=== PATIENT | female | born 1950 | race Caucasian/White ===

== ENCOUNTER 2017-01-27 04:44 | Emergency (ER) | payer OTHER, MEDICARE ==
[~2017-01-27] VITALS: Ht 167.6 cm; Wt 99.0 kg
[~2017-01-27 04:44] MED LIST: 1-ME1LIQ PO; CELE20TA PO; HUMSS SQ; LANTUS2P SC; LOSA50TA PO; METO50TA PO
[2017-01-27 04:47] VITALS: BP 140/84; PULSE 100; RESP 18; TEMP 98.4; O2SAT 95
[2017-01-27] MEDS ORDERED: HYDRO10 PO (05:06)
[2017-01-27] MEDS ORDERED: LEVEMIR SQ (05:06)
[2017-01-27] MEDS ORDERED: CORT20TA PO (05:06)
[2017-01-27] MEDS ORDERED: AMLO5 PO (05:06)
[2017-01-27] MEDS ORDERED: CELE20TA PO (05:06)
[2017-01-27] MEDS ORDERED: CORT5TAB PO ×2 (05:06)
[2017-01-27] MEDS ORDERED: LOSA50TA PO (05:06)
[2017-01-27] MEDS ORDERED: METO50TA PO (05:06)
[2017-01-27] MEDS ORDERED: FURO1TAB62 PO (05:06)
[2017-01-27] MEDS ORDERED: HUMALOG SQ (05:06)
[2017-01-27] MEDS ORDERED: TIRO25CA PO (05:08)
--- NOTE | 2017-01-27 05:28 | PD ---
HPI Chief Complaint: Edema Time Seen by Provider: 05:18 Travel History International Travel<30 days: No Contact w/Intl Traveler<30days: No Traveled to known affect area: No History of Present Illness HPI The patient is a 66 year old female who presents to the [facility] emergency department with a history of sore throat with reported anterior neck pain over her thyroid, and painful swallowing. She reports that she's basically been ingesting a liquid diet since yesterday. She reports that the symptoms began yesterday morning. 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 The patient reports that she had similar symptoms prior to being diagnosed with this a year ago. She reports that she was treated with antibiotics which seemed to help, however now she is on a thyroid supplement. She reports that she has an appointment with the [facility] to see an rn night regarding this, as she also has a history of recently being diagnosed with adrenal insufficiency and a year ago had an adrenal crisis. She reports that over the last year she seems 75 pounds which she relates to being on hydrocortisone. The patient reports that over the last year she has also had chronic diarrhea. She reports that she moves her bowels 5 times per day. She reports that she has a history of diabetes mellitus and her blood sugar is rarely ever under control. She reports that a blood sugar of 190 done yesterday with good, however it is usually much higher than this. She reports that she has been compliant with taking her insulin. Incidentally, on review of systems she reports having chronic dyspnea on exertion over the last year. The patient denies any recent fevers, cough, congestion, chest pain, worsening shortness of breath, abdominal pain, vomiting , urinary symptoms, or neurologic symptoms. [facility] Past Medical History Narrative Medical The patient's past medical history is significant for gastroparesis, DM, hypothyroidism, Addrenal insufficiency, hypertension, sleep apnea, fatty liver. Asthma: No Blood Disorders: No Heart Rhythm Problems: No Cancer: No Cardiovascular Problems: Yes (HTN) High Cholesterol: No Chest Pain: No Congestive Heart Failure: No COPD: No Diabetes: Yes Patient Takes Glucophage: No Endocrine: Yes Gastrointestinal Disorders: Yes (FATTY LIVER, gastroparesis) Genitourinary: No Hepatitis: Yes (HEP A AGE 15) Hiatal Hernia: No Hypertension: Yes Immune Disorder: No Medical other: Yes (FATTY LIVER, adrenal insufficiency) Musculoskeletal: Yes (L KNEE REPLACEMENT) Neurologic: No Psychiatric: No Reproductive: No Respiratory: Yes (SLEEP APNEA) Sleep Apnea: Yes Thyroid Disease: No Past Surgical History Narrative Surgical The patient's past surgical history is significant for cholecystectomy, left knee replacement, x1, nose surgery, and a tonsillectomy. Body Medical Devices: ARTIFICIAL L KNEE Cholecystectomy: Yes Gynecologic Surgery: Yes (1979 ) Joint Replacement: Yes (LEFT KNEE) Other Surgery: Yes (LEFT PLANTAR FASCIA TUMOR REMOVAL, L TOTAL KNEE REPLACEMENT ,C /S, GB REMOVE) Social History Alcohol Use: No Tobacco Use: No Substance Use: No Allergies-Medications (Allergen,Severity, Reaction): Coded Allergies: Lortab (Unverified Allergy, Intermediate, ITCHING, 04/03/16) Sulfa (Unverified Allergy, Intermediate, HIVES, 04/03/16) Vicodin (Unverified Allergy, Intermediate, ITCHING, 04/03/16) Penicillin (Unverified Allergy, Mild, HIVES, 04/03/16) Contrast Media (Unverified Allergy, Unknown, CHILDHOOD, 04/03/16) Reported Meds & Prescriptions Reported Meds & Active Scripts Active Clindamycin (Clindamycin HCl) 300 Mg Cap 300 Mg PO TID 10 Days Reported Tirosint (Levothyroxine Sodium) 25 Mcg Cap 75 Mcg PO DAILY Cortef (Hydrocortisone) 10 Mg Tab 10 Mg PO DAILY PRN Take with food to decresae GI upset Cortef (Hydrocortisone) 5 Mg Tab 5 Mg PO Take with food to decrease GI upset Cortef (Hydrocortisone) 5 Mg Tab 5 Mg PO DAILY Take with food to decrease GI upset Cortef (Hydrocortisone) 10 Mg Tab 10 Mg PO DAILY Take with food to decresae GI upset Cortef (Hydrocortisone) 20 Mg Tab 20 Mg PO DAILY Take with food to decrease GI upset Lasix (Furosemide) 20 Mg Tab 20 Mg PO DAILY Norvasc (Amlodipine Besylate) 5 Mg Tab 5 Mg PO DAILY Metoprolol Tartrate 50 Mg Tab 50 Mg PO BID Losartan (Losartan Potassium) 50 Mg Tab 50 Mg PO DAILY Humalog Inj (Insulin Human Lispro) 1,000 Unit/10 Ml Vial 20-25 Units SQ TIDAC Max dose at bedtime:( )units; sugars < 70,(0)units; sugars 150-199,(5)units; sugars 200-249,(10)units; sugars 250-299,(15)units; sugars 300-349,(20)units; sugars more than 349,(25)units. Levemir Inj (Insulin Detemir) 1,000 unit/ 10 ML Vial 50 Units SQ HS Do not mix with any other Insulin. Celexa (Citalopram Hydrobromide) 20 Mg Tab 20 Mg PO DAILY Review of Systems Except as stated in HPI: all other systems reviewed are Neg General / Constitutional: No: Fever Eyes: No: Visual changes HENT: Positive: Sore Throat, Neck Pain, No: Headaches, Rhinorrhea, Congestion Cardiovascular: Positive: Dyspnea on exertion (chronic over last year.), No: Chest Pain or Discomfort Respiratory: No: Cough, Shortness of Breath Gastrointestinal: Positive: Diarrhea, No: Nausea, Vomiting, Abdominal Pain Genitourinary: No: Urgency, Frequency, Dysuria Musculoskeletal: No: Pain Skin: No Rash Neurologic: Positive: Weakness (fatigue), No: Focal Abnormalities, Headache, Change in Mentation, Sensory Disturbance Psychiatric: No: Depression Endocrine: No: Polydipsia Hematologic/Lymphatic: No: Easy Bruising Physical Exam Narrative General: The patient is a well-developed well-nourished female in no acute distress. Head and Neck exam: Head is normocephalic atraumatic. Eyes: EOMI, pupils are equal round and reactive to light. Nose: Midline septum with pink mucous membranes Mouth: Dentition unremarkable. Moist mucus membranes. Posterior oropharynx is mildly erythematous. No tonsillar hypertrophy. Uvula midline. Airway patent. No swelling is noted underneath the tongue. Neck: No palpable lymphadenopathy, however she reports tenderness on palpation along the anterior tonsillar cervical lymph. No nuchal rigidity. No thyromegaly is palpable, however she has a large neck. She has diffuse soft tissue prominence noted in her neck. Cardiovascular: Regular rate and rhythm without murmurs, gallops, or rubs. Lungs: Clear to auscultation bilaterally. No wheezes, rhonchi, or rales. Abdomen: Soft, without tenderness to palpation in all 4 quadrants of the abdomen. No guarding, rebound, or rigidity. Normal bowel sounds are audible. No tenderness on palpation of McBurney's point. Negative [place] sign. Extremities: No clubbing or cyanosis. The patient has trace pedal edema bilateral lower extremity. 2+ pulses in all 4 extremities. No calf tenderness on palpation. Back: No costovertebral angle tenderness to palpation. Neurologic Exam: Grossly nonfocal. Skin Exam: No rash noted. Intact skin that is warm and dry. Data Data Last Documented VS Vital Signs Date Time Temp Pulse Resp B/P Pulse Ox O2 Delivery O2 Flow Rate FiO2 01/27/17 04:47 98.4 100 18 140/84 95 Orders Complete Blood Count With Diff (01/27/17 05:28) Comprehensive Metabolic Panel (01/27/17 05:28) Magnesium (Mg) (01/27/17 05:28) Thyroid Stimulating Hormone (01/27/17 05:28) Chest, Single Ap (01/27/17 05:28) Iv Access Insert/Monitor (01/27/17 05:28) Ecg Monitoring (01/27/17 05:28) Oximetry (01/27/17 05:28) Sodium Chlor 0.9% 1000 Ml Inj (Ns 1000 M (01/27/17 05:30) Ct Soft Tiss Neck W/O Iv Cont (01/27/17 ) Labs Laboratory Tests Test 01/27/17 05:50 White Blood Count 8.2 TH/MM3 Red Blood Count 4.60 MIL/MM3 Hemoglobin 14.3 GM/DL Hematocrit 41.0 % Mean Corpuscular Volume 89.2 FL Mean Corpuscular Hemoglobin 31.0 PG Mean Corpuscular Hemoglobin 34.8 % Concent Red Cell Distribution Width 13.0 % Platelet Count 304 TH/MM3 Mean Platelet Volume 9.0 FL Neutrophils (%) (Auto) 62.1 % Lymphocytes (%) (Auto) 24.3 % Monocytes (%) (Auto) 11.5 % Eosinophils (%) (Auto) 1.8 % Basophils (%) (Auto) 0.3 % Neutrophils # (Auto) 5.1 TH/MM3 Lymphocytes # (Auto) 2.0 TH/MM3 Monocytes # (Auto) 0.9 TH/MM3 Eosinophils # (Auto) 0.1 TH/MM3 Basophils # (Auto) 0.0 TH/MM3 CBC Comment DIFF FINAL Differential Comment Sodium Level 132 MEQ/L Potassium Level 4.5 MEQ/L Chloride Level 100 MEQ/L Carbon Dioxide Level 20.6 MEQ/L Anion Gap 11 MEQ/L Blood Urea Nitrogen 13 MG/DL Creatinine 0.59 MG/DL Estimat Glomerular Filtration 102 ML/MIN Rate Random Glucose 203 MG/DL Calcium Level 10.0 MG/DL Magnesium Level 1.7 MG/DL Total Bilirubin 0.9 MG/DL Aspartate Amino Transf 53 U/L (AST/SGOT) Alanine Aminotransferase 98 U/L (ALT/SGPT) Alkaline Phosphatase 128 U/L Total Protein 7.3 GM/DL Albumin 3.4 GM/DL Thyroid Stimulating Hormone 0.974 uIU/ML [address] [place] [address] Medical Decision Making Medical Screen Exam Complete: Yes Emergency Medical Condition: Yes Medical Record Reviewed: Yes Differential Diagnosis Acute pharyngitis, versus foul adenitis, versus lymphadenitis, versus lymphadenopathy, versus thyroid nodule Narrative Course During the course of the patients emergency department visit, the patients history, examination, and differential diagnosis were reviewed with the patient. The patient had IV access obtained and blood work sent for analysis. The patient was placed on a automotive leasing sales representative with oximetry and blood pressure monitoring. The patient is requesting treatment with antibiotic, I explained that thyroid abnormalities are not typically treated with antibiotic, however she reports that this improved her symptoms in the past his first diagnosed with Kimberly's thyroiditis. The patient has a penicillin allergy. The patient was initially provided clindamycin 600 mg IV. The patient was given normal saline 1 L IV fluid bolus. The patients laboratory studies were reviewed and remarkable for a CBC that shows a white count of 8.2, hemoglobin 14.3, platelets 304 with 11.5 monocytes. CMP is remarkable for sodium of 132, CO2 20.6, glucose 203, AST 53, ALT 98, alkaline phosphatase 128, TSH within normal limits. Radiology studies were reviewed and remarkable for a chest x-ray that shows slight cardiomegaly. CT scan of the neck is pending at the conclusion of my shift, therefore the patient's case was checked out to the oncoming emergency physician to disposition based on the conclusion of the patient's workup. I anticipate that the patient will be able to be discharged home to follow-up with the [facility] as previously scheduled. Diagnosis Primary Impression: Dysphagia Qualified Code: R13.11 - Oral phase dysphagia Additional Impression: Sore throat Scripts Clindamycin 300 Mg [id number] Mg PO TID 10 Days Ref 0 Prov:Verna Kline MD 01/27/17 Disposition: 01 DISCHARGE HOME Verna Kline MD Jan 27, 2017 05:28
[2017-01-27] MEDS ORDERED: SODIUM CHLOR 0.9% 1000 ML INJ 1,000 ML IV ONE (05:30)
[2017-01-27 06:09] LABS: AUTOMATED NEUTROPHIL # 5.1 TH/MM3 (1.8-7.7); BASOPHIL % 0.3 % (0.0-2.0); EOSINOPHIL # 0.1 TH/MM3 (0-0.4); EOSINOPHIL % 1.8 % (0.0-4.0); HEMO FLAGS DIFF FINAL; LYMPH % 24.3 % (9.0-44.0); MEAN CELL VOLUME 89.2 FL (80.0-100.0); MEAN CORPUSCULAR HGB CONC 34.8 % (32.0-36.0); MONO % 11.5 % (0.0-8.0); NEUT % 62.1 % (16.0-70.0); PLATELET COUNT 304 TH/MM3 (150-450); WHITE BLOOD COUNT 8.2 TH/MM3 (4.0-11.0)
--- NOTE | 2017-01-27 06:17 | RADRPT ---
EXAM DATE/TIME: 01/27/2017 06:00 [facility] COMPARISON: No previous studies available for comparison. INDICATIONS : Chest pain. MEDICAL HISTORY : None. SURGICAL HISTORY : None. ENCOUNTER: Initial ACUITY: 1 day PAIN SCORE: 0/10 LOCATION: Bilateral chest FINDINGS: Slight cardiomegaly seen. Lungs are clear. CONCLUSION: Slight cardiomegaly. Vikash Briones MD on January 27, 2017 at 6:15 Board Certified Radiologist. This report was verified electronically.
[2017-01-27 06:30] LABS: ANION GAP 11 MEQ/L (5-15); AST (GOT) 53 U/L (15-37); BICARBONATE 20.6 MEQ/L (21.0-32.0); BLOOD UREA NITROGEN 13 MG/DL (7-18); CHLORIDE 100 MEQ/L (98-107); GLOMERULAR FILTRATION RATE 102 ML/MIN (>89); MAGNESIUM 1.7 MG/DL (1.5-2.5); POTASSIUM 4.5 MEQ/L (3.5-5.1); SODIUM (NA) 132 MEQ/L (136-145)
[2017-01-27 06:32] LABS: ALT (GPT) 98 U/L (10-53)
[2017-01-27 06:41] LABS: ALKALINE PHOSPHATASE 128 U/L (45-117); TOTAL BILIRUBIN ADULT 0.9 MG/DL (0.2-1.0)
[2017-01-27] MEDS ORDERED: CLIN1CAP6 PO (07:07)
--- NOTE | 2017-01-27 07:49 | PD ---
Data Data Last Documented VS Vital Signs Date Time Temp Pulse Resp B/P Pulse Ox O2 Delivery O2 Flow Rate FiO2 01/27/17 04:47 98.4 100 18 140/84 95 Orders Complete Blood Count With Diff (01/27/17 05:28) Comprehensive Metabolic Panel (01/27/17 05:28) Magnesium (Mg) (01/27/17 05:28) Thyroid Stimulating Hormone (01/27/17 05:28) Chest, Single Ap (01/27/17 05:28) Iv Access Insert/Monitor (01/27/17 05:28) Ecg Monitoring (01/27/17 05:28) Oximetry (01/27/17 05:28) Sodium Chlor 0.9% 1000 Ml Inj (Ns 1000 M (01/27/17 05:30) Ct Soft Tiss Neck W/O Iv Cont (01/27/17 ) Labs Laboratory Tests Test 01/27/17 05:50 White Blood Count 8.2 TH/MM3 Red Blood Count 4.60 MIL/MM3 Hemoglobin 14.3 GM/DL Hematocrit 41.0 % Mean Corpuscular Volume 89.2 FL Mean Corpuscular Hemoglobin 31.0 PG Mean Corpuscular Hemoglobin 34.8 % Concent Red Cell Distribution Width 13.0 % Platelet Count 304 TH/MM3 Mean Platelet Volume 9.0 FL Neutrophils (%) (Auto) 62.1 % Lymphocytes (%) (Auto) 24.3 % Monocytes (%) (Auto) 11.5 % Eosinophils (%) (Auto) 1.8 % Basophils (%) (Auto) 0.3 % Neutrophils # (Auto) 5.1 TH/MM3 Lymphocytes # (Auto) 2.0 TH/MM3 Monocytes # (Auto) 0.9 TH/MM3 Eosinophils # (Auto) 0.1 TH/MM3 Basophils # (Auto) 0.0 TH/MM3 CBC Comment DIFF FINAL Differential Comment Sodium Level 132 MEQ/L Potassium Level 4.5 MEQ/L Chloride Level 100 MEQ/L Carbon Dioxide Level 20.6 MEQ/L Anion Gap 11 MEQ/L Blood Urea Nitrogen 13 MG/DL Creatinine 0.59 MG/DL Estimat Glomerular Filtration 102 ML/MIN Rate Random Glucose 203 MG/DL Calcium Level 10.0 MG/DL Magnesium Level 1.7 MG/DL Total Bilirubin 0.9 MG/DL Aspartate Amino Transf 53 U/L (AST/SGOT) Alanine Aminotransferase 98 U/L (ALT/SGPT) Alkaline Phosphatase 128 U/L Total Protein 7.3 GM/DL Albumin 3.4 GM/DL Thyroid Stimulating Hormone 0.974 uIU/ML 3rd Gen MDM Supervised Visit with APRIL: No Narrative Course Patient care assumed from Dr. Kline at 0700, this is a 66-year-old female on chronic steroids secondary to adrenal insufficiency also with a history of Kimberly's thyroiditis. She presents emergency department with dysphagia and problems swallowing. Patient has been able to tolerate liquid diet at home. A CT examination of her neck was ordered without IV contrast the patient does have allergy, shows that her airway is widely patent without mass. On clinical exam the patient is nontender neck exam supple, no masses felt, her swallow is intact. She stable for discharge and I recommend follow-up with the [facility] for consideration of procedural direct visualization. Clindamycin was ordered by Dr. Kline. No obvious source of infection is seen. Patient thought that she had an infection. Given her chronic steroid use, Dr. Kline and I are inclined to oblige. Diagnosis Primary Impression: Dysphagia Qualified Code: R13.11 - Oral phase dysphagia Additional Impression: Sore throat Additional Instruction: Use ensure or another dietary supplementation at home to make sure you're getting enough calories. Scripts Clindamycin 300 Mg [id number] Mg PO TID 10 Days Ref 0 Prov:Verna Kline MD 01/27/17 Disposition: 01 DISCHARGE HOME Condition: Stable Jefferson Barger MD Jan 27, 2017 07:49
--- NOTE | 2017-01-27 08:29 | RADRPT ---
EXAM DATE/TIME: 01/27/2017 07:43 [facility] COMPARISON: No previous studies available for comparison. INDICATIONS : Anterior neck swelling with difficulty swallowing. RADIATION DOSE: 25.64 CTDIvol (mGy) MEDICAL HISTORY : Hypertension. Diabetes mellitus type 2. Adrenall insufficiency SURGICAL HISTORY : Cholecystectomy. section. Total knee replacement, left. ENCOUNTER: Initial ACUITY: 1 day PAIN SCORE: 5/10 LOCATION: Neck TECHNIQUE: Volumetric scanning of the neck was performed. Using automated exposure control and adjustment of th e mA and/or kV according to patient size, radiation dose was kept as low as reasonably achievable to obtain optimal diagnostic quality images. FINDINGS: The study was done without contrast because of the patient's allergy to such. The nasopharynx and oropharynx are unremarkable. There is no adenopathy. The submandibular and parotid glands appear normal. I do not see any adenopathy or abscess in the neck. Calcification is seen in the left lobe of the thyroid. CONCLUSION: I do not see a neck mass. I do not see an etiology for the patient's difficulty swallowing.. Alirio Bolden MD FACR on January 27, 2017 at 7:59 Board Certified Radiologist. This report was verified electronically.
== END 2017-01-27 09:29 | disposition home or self-care (01) ==
LOC: NEPE 04:44
DX: R13.10 Dysphagia, unspecified (principal); I10 Essential (primary) hypertension
CPT/HCPCS: 70490; 71010; 80053; 83735; 84443; 85025; 99285; J7030